=== PATIENT | female | born 1955 | race American Indian/Alaskan Native ===

== ENCOUNTER 2017-03-16 11:07 | Outpatient (CLI) | payer OTHER ==
--- NOTE | 2017-03-18 13:06 | Mammography Report ---
BILATERAL DIGITAL SCREENING MAMMOGRAM with CAD: 03/16/17 11:07:00 CLINICAL: Routine screening. COMPARISON:12/20/15 FINDINGS: The breasts are almost entirely fatty. No mass, architectural distortion or suspicious calcifications. IMPRESSION: No mammographic evidence of malignancy. BI-RADS CATEGORY: 1 - - Negative RECOMMENDATION: Routine mammographic screening in one year. COMMENT: Patient follow-up letters are generated by our [employer] application.
== END 2017-03-16 11:08 | disposition home or self-care (01) ==
LOC: SPVWC 11:07
PROVIDERS: ATTEND Family Medicine
DX: Z12.31 Encounter for screening mammogram for malignant neoplasm of breast (principal)
CPT/HCPCS: 77067

== ENCOUNTER 2017-04-03 08:52 | Outpatient (CLI) | payer OTHER ==
--- NOTE | 2017-04-04 10:14 | Ultrasound Report ---
RIGHT UPPER QUADRANT ABDOMINAL ULTRASOUND: 04/03/17 08:52:00 CLINICAL: Elevated liver function tests. FINDINGS: High-resolution ultrasound demonstrated a borderline small liver with increased echogenicity and a heterogeneous echo pattern. No liver nodularity or mass identified. Small caliber hepatic and portal veins. The inferior vena cava is normal. A contracted gallbladder filled with sludge and shadowing calculi produces a febv-mukr-nebxek (MILE) complex. The gall bladder wall measures 4 mm in thickness. The common bile duct is dilated and measures 16 mm. However, the intrahepatic bile ducts are nondilated. The pancreas was not well imaged because of bowel gas. Normal upper abdominal aorta. The right kidney is normal and measures 11.3 x 4.1 x 4.1cm. No ascites or mass. IMPRESSION: 1. Changes in the liver suggests possible hepatocellular disease and/or cirrhosis. However, no signs of portal hypertension. 2. Cholelithiasis with a contracted gallbladder. No signs of acute cholecystitis. 3. CBD dilatation suggests possible choledocholithiasis. Consider MRI abdomen with MRCP.
--- NOTE | 2017-04-04 10:47 | Ultrasound Report ---
TRANSABDOMINAL AND TRANSVAGINAL PELVIC ULTRASOUND: 04/03/17 08:52:00 CLINICAL: Irregular menses. Dysfunctional uterine bleeding. FINDINGS: Transabdominal and transvaginal pelvic ultrasound demonstrated a fibroid uterus measuring 10.3 x 4.6 x 7.0 cm. A posterior fundal intramural fibroid measures 4.1 x 3.5 x 3.4 cm and may extend to the endometrium in a sub-mucosal location. A second posterior intramural fibroid to the right of midline measures 1.4 x 1.4 x 1.6 cm. The endometrium is mildly thickened and measures 8.0 mm AP thickness. Normal ovaries. The right ovary measures 1.8 x 1.2 x 2.2cm. The left ovary measures 2.5 x 1.8 x 2.2cm. No adnexal mass. No free fluid. Normal urinary bladder. IMPRESSION: 1. A mildly enlarged fibroid uterus. 2. Mild endometrial thickening. 3. Normal ovaries.
== END 2017-04-03 08:53 | disposition home or self-care (01) ==
LOC: SPVWC 08:52
PROVIDERS: ATTEND Family Medicine
DX: D25.1 Intramural leiomyoma of uterus (principal); K80.21 Calculus of gallbladder without cholecystitis with obstruction; R79.89 Other specified abnormal findings of blood chemistry; R79.1 Abnormal coagulation profile
CPT/HCPCS: 76705; 76830; 76856

== ENCOUNTER 2019-01-23 13:42 | Outpatient (CLI) | payer MEDICARE, OTHER ==
--- NOTE | 2019-01-23 15:16 | Ultrasound Report ---
TRANSABDOMINAL PELVIC AND TRANSVAGINAL ULTRASOUND HISTORY: POSTMENOPAUSAL BLEEDING COMPARISON: 04/03/2017 TECHNIQUE: Routine transabdominal and transvaginal pelvic ultrasound performed. FINDINGS: TRANSABDOMINAL PELVIC ULTRASOUND: Uterus: Enlarged with a posterior fundal uterine fibroid. Endometrium: Thickened. Right Ovary: Normal size, blood flow and appearance measuring 2.5 x 1.9 x 2.7 cm. Left Ovary: Normal size, blood flow and appearance measuring 2.3 x 1.7 x 1. 0 cm. Additional findings: Transvaginal exam was performed for better delineation of the endometrium and ov holger. TRANSVAGINAL PELVIC ULTRASOUND: Uterus: Enlarged 9.6 x 4.6 x 7.1 cm. A posterior intramural fundal fibroid measures 4.2 x 3.5 x 3.1 cm. Endometrium: Thickened 14.0 mm. Right Ovary: Normal size, blood flow and appearance measuring 2.5 x 1.9 x 2.7 cm. Left Ovary: Normal size, blood flow and appearance measuring 2.3 x 1.7 x 1.0 cm. Additional findings: A second uterine fibroid described on 04/03/2017 is not identified on this exam.. IMPRESSION: 1. Enlarged fibroid uterus with a 4.2 cm posterior fundal intramural fibroid. 2. Abnormal thickened endometrium. 3. Normal ovaries. 4. The uterus and posterior fundal fibroid are not significantly changed in size but there is greater in the endometrial thickening since the last exam. Signer Name: Horace Reynoso MD Signed: 01/23/2019 3:11 PM Workstation Name: [id number]
--- NOTE | 2019-01-24 09:06 | Mammography Report ---
BILATERAL DIGITAL SCREENING MAMMOGRAM WITH CAD INDICATION: Routine screening mammography. TECHNIQUE: Digital bilateral 2D mammography was obtained in the craniocaudal and mediolateral obliq ue projections. This examination was interpreted with the benefit of Computer-Aided Detection analysi s. COMPARISON: 03/16/2017, 12/20/2015. FINDINGS: Breast Density: The breasts are almost entirely fatty. No suspicious mass, microcalcifications, or architectural distortion. IMPRESSION: No evidence of breast malignancy. Recommend routine screening mammogram in one year. BI-RADS Category 1: Negative. No mammographic evidence of malignancy. Recommend routine screening m ammography in one year. A "normal" or negative report should not discourage follow up or biopsy of a clinically significant f inding. A written summary of these findings will be mailed to the patient. The patient will be entered into a mammography reporting system which will generate a reminder letter for the patient's next appointmen t at the appropriate interval. The [employer] recommends yearly mammograms starting at age 40 and continuing as l nishant as a woman is in good health. Breast MRI is recommended for women with an approximate 20-25% or greater lifetime risk of breast cancer, including women with a strong family history of breast or ova lewis cancer or who have been treated for Hodgkin's disease. Signer Name: Hernán Valdez MD Signed: 01/24/2019 9:01 AM Workstation Name: [id number]
== END 2019-01-23 13:43 | disposition home or self-care (01) ==
LOC: SPVWC 13:42
PROVIDERS: ATTEND Family Medicine
DX: Z12.31 Encounter for screening mammogram for malignant neoplasm of breast (principal); D25.9 Leiomyoma of uterus, unspecified; R92.1 Mammographic calcification found on diagnostic imaging of breast; N95.0 Postmenopausal bleeding
CPT/HCPCS: 76830; 76856; 77067

== ENCOUNTER 2020-04-29 14:36 | Outpatient (CLI) | payer MEDICARE, OTHER ==
--- NOTE | 2020-04-29 15:35 | Mammography Report ---
DIGITAL SCREENING MAMMOGRAM WITH CAD, 04/29/2020 INDICATION: Routine screening mammography. TECHNIQUE: Digital bilateral 2D mammography was obtained in the craniocaudal and mediolateral obliq ue projections. This examination was interpreted with the benefit of Computer-Aided Detection analysi s. COMPARISON: 01/23/2019. FINDINGS: Breast Density: There are scattered areas of fibroglandular density. There is no evidence of dominant mass, suspicious calcifications or architectural distortion in eithe r breast. IMPRESSION: Follow up recommendation: Routine yearly BI-RADS Category 1: Negative. A "normal" or negative report should not discourage follow up or biopsy of a clinically significant f inding. A written summary of these findings will be mailed to the patient. The patient will be entered into a mammography reporting system which will generate a reminder letter for the patient's next appointmen t at the appropriate interval. The [employer] recommends yearly mammograms starting at age 40 and continuing as l nishant as a woman is in good health. Breast MRI is recommended for women with an approximate 20-25% or greater lifetime risk of breast cancer, including women with a strong family history of breast or ova lewis cancer or who have been treated for Hodgkin's disease. Signer Name: Demario Gallegos MD Signed: 04/29/2020 3:31 PM Workstation Name: [email or web address]
== END 2020-04-29 14:37 | disposition home or self-care (01) ==
LOC: SPVWC 14:36
PROVIDERS: ATTEND Family Medicine
DX: Z12.31 Encounter for screening mammogram for malignant neoplasm of breast (principal)
CPT/HCPCS: 77067